=== PATIENT | female | born 1955 | race Caucasian/White ===

== ENCOUNTER 2022-06-04 05:57 | Day surgery (SDC) | payer MEDICARE, MEDICAID ==
[2022-05-28 15:46] LABS: BASOPHILS % (AUTO) 0.3 % (0-1); EOSINOPHILS # (AUTO) 0.2 X10'3 (0-0.9); EOSINOPHILS % (AUTO) 1.9 % (0-6); LYMPHOCYTES # (AUTO) 3.7 X10'3 (1.1-4.8); LYMPHOCYTES % (AUTO) 45.8 % (21-51); MEAN CORPUSCULAR HEMOGLOBIN 27.1 PG (27.0-31.0); MEAN CORPUSCULAR HGB CONC 32.9 g/dL (33.0-36.5); MEAN CORPUSCULAR VOLUME 82.5 FL (78-98); MEAN PLATELET VOLUME 6.7 FL (7.4-10.4); MONOCYTES # (AUTO) 0.4 X10'3 (0-0.9); NEUTROPHILS # (AUTO) 3.8 X10'3 (1.8-7.7); PRE OP HEMATOCRIT 36.9 % (35.0-45.0); PRE OP HEMOGLOBIN 12.1 g/dL (12.0-16.0); PRE OP PLATELET COUNT 267 X10'3 (140-440); RED BLOOD COUNT 4.47 X10'6 (4.20-5.60); RED CELL DISTRIBUTION WIDTH 14.9 % (11.5-14.5)
[2022-05-28 15:59] LABS: ALBUMIN 3.6 G/DL (3.4-5.0); ALKALINE PHOSPHATASE 64 IU/L (46-116); BLOOD UREA NITROGEN 11 MG/DL (7-18); BUN/CREATININE RATIO 12.9 (6.6-38.0); CALCIUM 8.9 MG/DL (8.5-10.1); CHLORIDE 101 MMOL/L (99-107); CREATININE 0.85 MG/DL (0.40-0.90); PRE OP ALT 20 U/L (30-65); PRE OP ANION GAP 5 (8-16); PRE OP AST 21 U/L (10-37); PRE OP BILIRUB, TOTAL 0.3 MG/DL (0.0-1.0); PRE OP GLUCOSE 119 MG/DL (70-104); PRE OP POTASSIUM 3.6 MMOL/L (3.4-5.1); PRE OP SODIUM 134 MMOL/L (135-145); TOTAL CARBON DIOXIDE 27.6 MMOL/L (24-32); TOTAL PROTEIN 7.1 G/DL (6.4-8.2); eGFR 67 ML/MIN
[~2022-06-04] VITALS: Ht 167.6 cm; Wt 82.3 kg
[~2022-06-04 05:57] MED LIST: ASPI-1071 PO; BUDE10.22 PO; DEXL60CA3 PO; FLUT16SP26 BOTHNARES; HYDR-3972 PO; LISI10TA27 PO; LYSI500T40 PO; PRAM0.5T12 PO; TOPI50TA PO; TRAZ-256 PO; VERA120T86 PO; ceFAZolin inj. 2,000 MG in dextrose 5%-water 100 ML IV ONE; famotidine 20mg tablet PO ONE; ringers solution, lacted 1,000 ML IV SCH
[2022-06-04 06:30] VITALS: BP 132/80
[2022-06-04] MEDS ORDERED: BUPIVAcaine/PF 5 mg/ml 10ml ONE (06:42)
[2022-06-04] MEDS ORDERED: ondansetron/PF 4mg/2ml inj IV PRN (07:30)
[2022-06-04] MEDS ORDERED: morphine 4 MG/ML inj SYRINge IV PRN (07:30)
[2022-06-04] MEDS ORDERED: proCHLORperazine 10 MG/2 ml inj IV PRN (07:30)
[2022-06-04] MEDS ORDERED: ringers solution, lacted 1,000 ML IV SCH (07:30)
[2022-06-04] MEDS ORDERED: morphine 2 MG/ML inj. syringe IV PRN (07:30)
[2022-06-04] MEDS ORDERED: meperidine/PF 25mg/ml syringe IV PRN ×3 (07:30)
[2022-06-04] MEDS ORDERED: propofol inj 20 ML IV ONE (08:30)
[2022-06-04] MEDS ORDERED: midazolam 1 mg/ML 2ml injection ONE ×2 (08:30→08:43)
[2022-06-04] MEDS ORDERED: FENTANYL CITRATE/PF 50 MCG/1 ML VIAL ONE (08:30)
[2022-06-04] MEDS ORDERED: LIDOcaine 0.5% (5mg/ml) 50ml vial ONE (08:31)
[2022-06-04 09:31] VITALS: BP 172/91
--- NOTE | 2022-06-04 09:31 | NUR ---
Received from OR via [facility], accompanied by Anesthesiologist DR NASH and report given by Anesthesiologist AND LOG SORTER. PT DROWSY, DENIES PAIN. LEFT HAND/WRIST/THUMB W/LAYNE WRAP COVERING INCISION/SPLINT/DRSG CDI FROM TIP OF THUMB, FINGERS TO UPPER FOREARM. FINGERS/THUMB PWD, ANIMAL TRAINER 1-2 SECONDS. Addendum: 06/04/22 at 1003 by Eda Anaya RN Amended: Links added.
[2022-06-04 09:40] VITALS: BP 167/89
[2022-06-04 09:50] VITALS: BP 163/80
[2022-06-04 10:00] VITALS: BP 162/77
[2022-06-04 10:10] VITALS: BP 159/72
--- NOTE | 2022-06-04 10:41 | NUR ---
PT UP AND ABLE TO AMBULATE SAFELY, VOIDED. D/C INSTRUCTIONS GIVEN AND GONE OVER W/PT WHO VERBALIZED UNDERSTANDING. PT D/CD TO HOME VIA W/C TO PRIVATE VEHICLE W/O INCIDENT. Addendum: 06/04/22 at 1100 by Eda Anaya RN Amended: Links added.
== END 2022-06-04 10:41 | disposition home or self-care (01) ==
LOC: PAS 05:57
PROVIDERS: ATTEND Orthopaedic Surgery Hand Surgery
DX: M18.12 Unilateral primary osteoarthritis of first carpometacarpal joint, left hand (principal); F41.8 Other specified anxiety disorders; I10 Essential (primary) hypertension; K21.9 Gastro-esophageal reflux disease without esophagitis; M06.9 Rheumatoid arthritis, unspecified; Z98.890 Other specified postprocedural states; Z90.710 Acquired absence of both cervix and uterus; Z79.899 Other long term (current) drug therapy; Z90.49 Acquired absence of other specified parts of digestive tract; Z72.89 Other problems related to lifestyle; F17.210 Nicotine dependence, cigarettes, uncomplicated
CPT/HCPCS: 25312; 25447; 36415; 80053; 82948; 85025; 93005; J0690; J2250; J2704; J3010; J3490; J7030; J7060; J7120; Z7506; Z7512; A4215; A4618; A7000